=== PATIENT | male | born 1955 | race Caucasian/White ===

== ENCOUNTER 2025-07-12 06:17 | Day surgery (SDC) | payer MEDICARE, SELFPAY | END 2025-07-12 12:45 | disposition home or self-care (01) | LOC: GI 06:17 | PROVIDERS: ATTENDING PHYSICIAN Surgery | DX: Z12.11 Encounter for screening for malignant neoplasm of colon (principal); K57.30 Diverticulosis of large intestine without perforation or abscess without bleeding; D12.5 Benign neoplasm of sigmoid colon; K62.1 Rectal polyp; K63.89 Other specified diseases of intestine; Z86.0101 Personal history of adenomatous and serrated colon polyps | CPT/HCPCS: 45385; 45380; 88305 ==